=== PATIENT | female | born 1995 | race Caucasian/White ===

== ENCOUNTER → 2016-12-03 | Outpatient (CLI) | payer BC ==
[~2016-12-03] MED LIST: PRENATAL MVI PO
== END ==
LOC: COL.CARD 14:12
DX: R00.2 Palpitations (principal)

== ENCOUNTER 2017-01-07 15:51 | Emergency (ER) | payer BC, MEDICAID ==
[~2017-01-07] VITALS: Ht 170.2 cm; Wt 80.2 kg
[2017-01-07 15:55] VITALS: BP 121/62; PULSE 52; TEMP 98.2
[2017-01-07 16:08] VITALS: BP 121/62; PULSE 52; TEMP 98.2
[2017-01-07 16:35] VITALS: BP 125/74; PULSE 86
[2017-01-07] MEDS ORDERED: PRENATAL MVI PO (16:53)
[2017-01-07 17:40] LABS: HEMATOCRIT 38.6 % (37.0-47.0); MEAN CELL VOLUME 89 fl (80.0-100.0); MEAN CORPUSCULAR HEMOGLOBIN 30 pg (27.0-31.0); MEAN CORPUSCULAR HGB CONC 34 g/dl (33.0-37.0); MEAN PLATELET VOLUME 10.4 fl (7.4-10.4); PLATELET COUNT 222 K/mm3 (130-400); RED BLOOD COUNT 4.34 M/mm3 (4.10-5.30); REDCELL DISTRIBUTION WIDTH-CV 12.5 % (11.5-14.5); WHITE BLOOD COUNT 17.4 K/mm3 (4.8-10.8)
[2017-01-07 17:46] LABS: ADD PATHOLOGY DIFF REVIEW NO
[2017-01-07 17:51] LABS: ADJUSTED CALCIUM 9.4 mg/dL (8.4-10.2); ALBUMIN 3.7 gm/dL (3.5-5.0); BILIRUBIN,TOTAL 0.8 mg/dL (0.0-1.0); CALCIUM 9.2 mg/dL (8.4-10.2); CREATININE, serum 0.59 mg/dL (0.52-1.25); POTASSIUM 4.2 mmol/L (3.4-5.0); TOTAL PROTEIN 6.8 gm/dL (6.4-8.2)
[2017-01-07 18:21] LABS: BAND 5 % (0-10); EOSINOPHIL 1 % (0-4); MICROCYTOSIS 1+; NEUTROPHILS 69 % (42.0-75.2); PLATELET ESTIMATE NORMAL (NORMAL); TOTAL CELLS COUNTED 100
[2017-01-07 18:39] LABS: PH 7 (5-8); SQUAMOUS EPITHELIAL 20-50 /hpf; URINE APPEARANCE Cloudy; URINE BACTERIA Rare /hpf; URINE BILIRUBIN Negative (NEGATIVE); URINE BLOOD Negative (NEGATIVE); URINE COLOR Yellow; URINE GLUCOSE Negative (NEGATIVE); URINE KETONE 1+ (NEGATIVE); URINE UROBILINOGEN Negative (NEGATIVE); URINE WBC 20-50 /hpf
[2017-01-07 19:32] LABS: PH 7 (5-8); SQUAMOUS EPITHELIAL 0-2 /hpf; URINE APPEARANCE Clear; URINE BACTERIA Rare /hpf; URINE BILIRUBIN Negative (NEGATIVE); URINE BLOOD Negative (NEGATIVE); URINE COLOR Yellow; URINE GLUCOSE Negative (NEGATIVE); URINE KETONE 1+ (NEGATIVE); URINE RBC 0-2 /hpf; URINE UROBILINOGEN Negative (NEGATIVE)
[2017-01-07 20:46] VITALS: BP 117/76; PULSE 96; TEMP 98.9
== END 2017-01-07 20:55 | disposition home or self-care (01) ==
LOC: COL.ER 15:51 → LDRO 15:51 → EDSTATUS 16:47 → COL.ER 20:55
PROVIDERS: Emergency Medicine
DX: O99.413 Diseases of the circulatory system complicating pregnancy, third trimester (principal); I49.3 Ventricular premature depolarization; Z3A.29 29 weeks gestation of pregnancy; R00.2 Palpitations; R42 Dizziness and giddiness
CPT/HCPCS: J7030

== ENCOUNTER 2017-02-28 00:20 | Outpatient (CLI) | payer MEDICAID ==
[~2017-02-28] VITALS: Ht 170.2 cm; Wt 84.1 kg
[2017-02-28] MEDS ORDERED: TOPROL XL 25MG25 MG PO (00:42)
[2017-02-28 01:00] VITALS: BP 109/66; PULSE 94; TEMP 97.5
[2017-02-28 01:35] VITALS: BP 124/76; PULSE 45; TEMP 97.8
== END 2017-02-28 01:50 | disposition home or self-care (01) ==
LOC: LDRO 00:20
DX: Z34.03 Encounter for supervision of normal first pregnancy, third trimester (principal); Z3A.36 36 weeks gestation of pregnancy

== ENCOUNTER 2017-03-11 19:47 | Inpatient (IN) | payer MEDICAID ==
[~2017-03-11] VITALS: Ht 172.7 cm; Wt 85.9 kg
[~2017-03-11 19:47] MED LIST changes: +TOPROL XL 25MG25 MG PO
[2017-03-17] VITALS (34 sets, daily range): BP systolic 107–138; BP diastolic 53–81; PULSE 46–109; TEMP 97.9–98.5
[2017-03-17] MEDS ORDERED: ZANTAC 150150 MG (07:48)
[2017-03-17 08:12] LABS: HEMOGLOBIN 12.2 g/dl (12.5-16.0); MEAN CELL VOLUME 89 fl (80.0-100.0); MEAN CORPUSCULAR HEMOGLOBIN 30 pg (27.0-31.0); MEAN CORPUSCULAR HGB CONC 34 g/dl (33.0-37.0); MEAN PLATELET VOLUME 10.7 fl (7.4-10.4); PLATELET COUNT 213 K/mm3 (130-400); RED BLOOD COUNT 4.03 M/mm3 (4.10-5.30); WHITE BLOOD COUNT 12.4 K/mm3 (4.8-10.8)
[2017-03-17 08:14] LABS: HEMATOCRIT 35.8 % (37.0-47.0)
[2017-03-17 08:15] LABS: ADD PATHOLOGY DIFF REVIEW NO
[2017-03-17 11:13] LABS: BAND 21 % (0-10); EOSINOPHIL 1 % (0-4); LYMPHOCYTE 22 % (20.0-51.0); METAMYELOCYTE 3 % (0-0); NEUTROPHILS 50 % (42.0-75.2); PLATELET ESTIMATE NORMAL (NORMAL); TOTAL CELLS COUNTED 100
[2017-03-18 02:00] VITALS: BP 111/60; PULSE 61; TEMP 98
[2017-03-18 06:50] VITALS: BP 113/71; PULSE 83; TEMP 97.6
[2017-03-18] MEDS ORDERED: MOTRIN 600600 MG/TAB PO (08:52)
[2017-03-18] MEDS ORDERED: PERCOCET 325 MG1 TA2 PO (08:52)
[2017-03-18 16:30] VITALS: BP 112/59; PULSE 67; TEMP 98.1
[2017-03-18 19:50] VITALS: BP 99/47; PULSE 69; TEMP 97.6
[2017-03-19 07:20] VITALS: BP 118/63; PULSE 85; TEMP 98.1
== END 2017-03-19 12:20 | disposition home or self-care (01) | DRG 774 ==
LOC: COL.ER 19:47 → LDR 03-14 06:36 → OB 03-17 06:56 → LDR 03-17 06:56 → OB 03-17 18:30
PROVIDERS: Obstetrics & Gynecology
PROC: 10E0XZZ Delivery of Products of Conception, External Approach (ICD-10-PCS; principal; 2017-03-17)
PROC: 0W8NXZZ Division of Female Perineum, External Approach (ICD-10-PCS; 2017-03-17)
DX: O99.413 Diseases of the circulatory system complicating pregnancy, third trimester (principal); I47.2 Ventricular tachycardia; O99.824 Streptococcus B carrier state complicating childbirth; O69.81X0 Labor and delivery complicated by cord around neck, without compression, not applicable or unspecified; Z3A.39 39 weeks gestation of pregnancy; Z37.0 Single live birth
CPT/HCPCS: J1200; J2590; J3370; J7050; J7120

== ENCOUNTER 2017-03-11 19:49 | Outpatient (CLI) | payer MEDICAID ==
[~2017-03-11] VITALS: Ht 170.2 cm; Wt 84.1 kg
[2017-03-11 20:30] VITALS: BP 119/68; PULSE 48; TEMP 97.6
[2017-03-11 21:13] VITALS: BP 117/61; PULSE 47
== END 2017-03-11 21:25 | disposition home or self-care (01) ==
LOC: LDRO 19:49
DX: O99.413 Diseases of the circulatory system complicating pregnancy, third trimester (principal); R00.2 Palpitations; Z3A.38 38 weeks gestation of pregnancy

== ENCOUNTER 2023-02-09 10:24 | Inpatient (IN) | payer BC ==
[~2023-02-09] VITALS: Ht 170.2 cm; Wt 98.2 kg
[2023-02-09] VITALS (27 sets, daily range): BP systolic 114–150; BP diastolic 59–81; PULSE 48–109; TEMP 94–97.9
[~2023-02-09 10:24] MED LIST changes: +LEXAPRO20 MG; +MOTRIN 600600 MG/TAB PO; +NATURAL MAGNES200 MG PO; +PERCOCET 325 MG1 TA2 PO; +PRILOSEC10 MG PO; +ZANTAC 150150 MG
--- NOTE | 2023-02-09 12:00 | NUR ---
Presents to labor and delivery for induction of labor. Iv start to left hand. Lactated ringers started. Assessment done, questions offered and answered.
--- NOTE | 2023-02-09 12:30 | NUR ---
Pitocin 2 giovanna units iv started as ordered and per protocol.
[2023-02-09 12:39] LABS: HEMATOCRIT 37.3 % (37.0-47.0); HEMOGLOBIN 12.3 g/dl (12.5-16.0); MEAN CELL VOLUME 86 fl (80.0-100.0); MEAN CORPUSCULAR HEMOGLOBIN 29 pg (27-31); MEAN CORPUSCULAR HGB CONC 33 g/dl (33.0-37.0); MEAN PLATELET VOLUME 10.8 fl (7.4-10.4); PLATELET COUNT 250 K/mm3 (130-400); RED BLOOD COUNT 4.32 M/mm3 (4.10-5.30); REDCELL DISTRIBUTION WIDTH-CV 12.6 % (11.5-14.5)
--- NOTE | 2023-02-09 12:44 | NUR ---
Clindamycin 600 mg iv given as ordered for group b strep positive.
[2023-02-09 12:52] LABS: BAND 8 % (0-10); EOSINOPHIL 1 % (0-4); LYMPHOCYTE 23 % (20.0-51.0); METAMYELOCYTE 1 % (0-0); NEUTROPHILS 63 % (42.0-75.2); PLATELET ESTIMATE NORMAL (NORMAL)
--- NOTE | 2023-02-09 13:15 | NUR ---
Anesthesia here, visits with patient. 1338 Tests dose given by anesthesia Aleisha crow.
[2023-02-09] MEDS ORDERED: LEXAPRO20 MG (13:23)
[2023-02-09] MEDS ORDERED: PRILOSEC 20MG20 MG PO (13:23)
[2023-02-09] MEDS ORDERED: PRENATAL TABLET PO (13:25)
[2023-02-09] MEDS ORDERED: MAGNESIUM200 MG (13:26)
--- NOTE | 2023-02-09 14:35 | NUR ---
Roles here, arom done, moderate amount of clear fluid noted. Pad changed.
--- NOTE | 2023-02-09 16:30 | NUR ---
Let Dr. Granado know that patient 9-10 with cervix on the left side. 1634 Dr. Granado here, vag check done, states complete. Prepped for delivery. Patient states blood sugar 64 and is feeling sick. Small amount of emisis noted. Starts pushing with contractions. 1646 Spontaneous delivery with second degree episiotomy done. 1649 Spontaneous delivery of baby girl by Dr. Granado. Pitoicn started at 333ccs an hour as ordered and per policy.
--- NOTE | 2023-02-09 18:15 | NUR ---
Rests in bed, alert. Family at bedside. Denies any needs at this time.
[2023-02-10 03:30] VITALS: BP 132/87; PULSE 90; TEMP 97.7
--- NOTE | 2023-02-10 09:19 | NUR ---
Initial visit; Parents thanked Temporary Staff Accountant for offering congratulations and God's blessings for the of their daughter. Temporary Staff Accountant thanked family for choosing [facility]via [facility].
[2023-02-10 09:45] VITALS: BP 128/70; PULSE 91; TEMP 97.7
[2023-02-10 17:00] VITALS: BP 131/75; PULSE 89; TEMP 97.8
[2023-02-10 20:05] VITALS: BP 121/74; PULSE 85; TEMP 97.5
[2023-02-11 04:18] VITALS: BP 14/79; PULSE 78; TEMP 98.1
[2023-02-11 07:00] VITALS: BP 123/79; PULSE 88; TEMP 98.1
[2023-02-11] MEDS ORDERED: IBU800 M1 PO (10:30)
--- NOTE | 2023-02-11 10:45 | NUR ---
DISCHARGE TEACHING COMPLETED. EDUCATED ABOUT FOLLOW UP APPOINTMENT AND PRESCRIPTION. QUESTIONS INVITED AND ANSWERED.
== END 2023-02-11 11:00 | disposition home or self-care (01) | DRG 807 ==
LOC: OB 10:24 → LDR 11:59 → OB 20:27
PROVIDERS: ADMIT Obstetrics & Gynecology
PROC: 10E0XZZ Delivery of Products of Conception, External Approach (ICD-10-PCS; principal; 2023-02-09)
PROC: 0W8NXZZ Division of Female Perineum, External Approach (ICD-10-PCS; 2023-02-09)
PROC: 3E033VJ Introduction of Other Hormone into Peripheral Vein, Percutaneous Approach (ICD-10-PCS; 2023-02-09)
DX: O24.420 Gestational diabetes mellitus in childbirth, diet controlled (principal); Z37.0 Single live birth; Z3A.39 39 weeks gestation of pregnancy; O99.824 Streptococcus B carrier state complicating childbirth; O76 Abnormality in fetal heart rate and rhythm complicating labor and delivery; O70.9 Perineal laceration during delivery, unspecified; O99.344 Other mental disorders complicating childbirth; F32.A Depression, unspecified; F41.9 Anxiety disorder, unspecified
CPT/HCPCS: J0737; J2590; J2795; J7120